=== PATIENT | female | born 1965 | race Caucasian/White ===

== ENCOUNTER 2016-12-30 19:16 | Emergency (ER) | payer OTHER ==
[2016-12-30 19:23] VITALS: BP 120/85; PULSE 90; BMI 23.2
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
[2016-12-30] MEDS ORDERED: IBUPROFEN 600 MG TABLET (FP) PO ONE ×2 (20:53→20:56)
== END 2016-12-30 21:45 | disposition home or self-care (01) ==
LOC: JERFT 19:16
DX: S93.401A Sprain of unspecified ligament of right ankle, initial encounter (principal); X50.1XXA Overexertion from prolonged static or awkward postures, initial encounter; Y93.01 Activity, walking, marching and hiking; Y92.414 Local residential or business street as the place of occurrence of the external cause
CPT/HCPCS: 73610-TC-RT; 73630-TC-RT; 84703; 99281-25